=== PATIENT | male | born 1965 | race Caucasian/White ===

== ENCOUNTER 2021-02-10 10:44 | Day surgery (SDC) | payer OTHER, BC ==
--- NOTE | 2021-02-10 11:12 | EDM.PDOC ---
ED HPI GENERAL MEDICAL PROBLEM - General Chief Complaint: Lower Extremity Injury/Pain Stated Complaint: FALL VIA NORTH Time Seen by Provider: 02/10/21 10:55 Source of Information: Reports: Patient, RN Notes Reviewed History Limitations: Reports: No Limitations - History of Present Illness INITIAL COMMENTS - FREE TEXT/NARRATIVE: 55-year-old gentleman was at work when he slipped on some snow and ice he had a twist heard a large pop in his left knee now he has difficulty ambulating. Was brought in by EMS services did receive 100 mcg of fentanyl his pain is controlled at this time excruciating pain moving the knee at all - Related Data Allergies Allergy/AdvReac Type Severity Reaction Status Date / Time No Known Allergies Allergy Verified 02/10/21 10:48 Home Meds: Home Meds NK [No Known Home Meds] 02/10/21 [History] Past Medical History - Past Health History Medical/Surgical History: Denies Medical/Surgical History Social & Family History - Tobacco Use Tobacco Use Status *Q: Heavy Tobacco User Years of Tobacco use: 45 Packs/Tins Daily: 1 - Recreational Drug Use Recreational Drug Use: No Review of Systems - Review of Systems Review Of Systems: See Below Musculoskeletal: Reports: Joint Pain (Knee pain) ED EXAM, GENERAL - Physical Exam Exam: See Below Free Text/Narrative:: Examination of the left knee I do appreciate a sunken area above the patella he does complain of pain to palpation in this area I cannot appreciate the tendon on the superior aspect no joint line tenderness will not tolerate any movement Course - Vital Signs Last Recorded V/S: Last Vital Signs Temp 97.8 F 02/10/21 10:46 Pulse 83 02/10/21 10:46 Resp 18 02/10/21 10:46 BP 136/65 02/10/21 10:46 Pulse Ox 99 02/10/21 10:46 - Orders/Labs/Meds Orders: Active Orders 24 hr Category Date Time Status CBC WITH AUTO DIFF [HEME] Stat Lab 02/10/21 12:13 Ordered COMPREHENSIVE METABOLIC PN,CMP [CHEM] Stat Lab 02/10/21 12:13 Ordered CORONAVIRUS COVID-19 RAPID [MOLEC] Stat Lab 02/10/21 12:18 Ordered DRUG SCREEN, URINE [URCHEM] Stat Lab 02/10/21 12:08 Ordered Meds: Medications Discontinued Medications Generic Name Dose Route Start Last Admin Trade Name Freq PRN Reason Stop Dose Admin Dexamethasone Confirm 02/10/21 12:19 Dexamethasone 4 Mg/Ml Sdv Administered 02/10/21 12:20 Dose 4 mg .ROUTE .STK-MED ONE Fentanyl Confirm 02/10/21 12:18 Fentanyl 250 Mcg/5 Ml Sdv Administered 02/10/21 12:19 Dose 250 mcg .ROUTE .STK-MED ONE Glycopyrrolate Confirm 02/10/21 12:19 Glycopyrrolate 0.2 Mg/Ml 5 Ml Mdv Administered 02/10/21 12:20 Dose 1 mg .ROUTE .STK-MED ONE Neostigmine Methylsulfate Confirm 02/10/21 12:19 Neostigmine Methylsulfate 1 Mg/Ml 5 Ml Syringe Administered 02/10/21 12:20 Dose 5 mg .ROUTE .STK-MED ONE Ondansetron HCl Confirm 02/10/21 12:19 Ondansetron 4 Mg/2 Ml Sdv Administered 02/10/21 12:20 Dose 4 mg .ROUTE .STK-MED ONE Propofol Confirm 02/10/21 12:19 Propofol 200 Mg/20 Ml Sdv Administered 02/10/21 12:20 Dose 200 mg .ROUTE .STK-MED ONE Rocuronium [place] Confirm 02/10/21 12:19 Rocuronium 50 Mg/5 Ml Vial Administered 02/10/21 12:20 Dose 50 mg .ROUTE .STK-MED ONE Succinylcholine Chloride Confirm 02/10/21 12:19 Succinylcholine 200 Mg/10 Ml Mdv Administered 02/10/21 12:20 Dose 200 mg .ROUTE .STK-MED ONE Departure - Departure Time of Disposition: 12:26 Disposition: DC/Tfer to Other 70 Clinical Impression: Patellar tendon rupture Qualifiers: Encounter type: initial encounter Laterality: left Qualified Code(s): S86.812A - Strain of other muscle(s) and tendon(s) at lower leg level, left leg, initial encounter - Discharge Information Referrals: PCP,None [Primary Care Provider] - Forms: ED Department Discharge Sepsis Event Note (ED) - Evaluation Sepsis Screening Result: No Definite Risk - Focused Exam Vital Signs: Vital Signs Temp Pulse Resp BP Pulse Ox 02/10/21 10:46 97.8 F 83 18 136/65 99 - My Orders Last 24 Hours: My Active Orders 02/10/21 12:08 DRUG SCREEN, URINE [URCHEM] Stat 02/10/21 12:13 CBC WITH AUTO DIFF [HEME] Stat COMPREHENSIVE METABOLIC PN,CMP [CHEM] Stat 02/10/21 12:18 CORONAVIRUS COVID-19 RAPID [MOLEC] Stat - Assessment/Plan Last 24 Hours: My Active Orders 02/10/21 12:08 DRUG SCREEN, URINE [URCHEM] Stat 02/10/21 12:13 CBC WITH AUTO DIFF [HEME] Stat COMPREHENSIVE METABOLIC PN,CMP [CHEM] Stat 02/10/21 12:18 CORONAVIRUS COVID-19 RAPID [MOLEC] Stat Plan: assessment patella tendon tear plan consult ortho at 12:10
--- NOTE | 2021-02-10 11:58 | CRLCR ---
For Patients: As a result of the Century Cures Act, medical imaging exams and procedure reports are released immediately into your electronic medical record. You may view this report before your referring provider. If you have questions, please contact your health care provider. Indication: Fall. Pain. Technique: Three images of the left knee were acquired Comparison: None Findings: The medial and lateral compartments appear normal. There is no fracture identified involving the femur, tibia or proximal fibula. A small joint effusion is noted. There is a relatively large spur arising from the superior aspect of the patella. 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 There are multiple ossific bodies identified which probably represent intra-articular bodies. This usually related to remote trauma, likely of the patella Impression: Significant appearing chronic changes of the patella. No definite indication of acute fracture, dislocation or destructive process. Small joint effusion. Dictated by Cordell Montgomery MD @ 02/10/2021 11:58:00 AM (Electronically Signed)
[2021-02-10] MEDS ORDERED: fentaNYL 250 MCG/5 ML SDV ONE ×2 (12:18→14:12)
[2021-02-10] MEDS ORDERED: Succinylcholine 200 MG/10 ML MDV ONE (12:19)
[2021-02-10] MEDS ORDERED: Neostigmine Methylsulfate 1 MG/ML 5 ML Syringe ONE (12:19)
[2021-02-10] MEDS ORDERED: Ondansetron 4 MG/2 ML SDV ONE (12:19)
[2021-02-10] MEDS ORDERED: Propofol 200 MG/20 ML SDV ONE (12:19)
[2021-02-10] MEDS ORDERED: Rocuronium 50 MG/5 ML Vial ONE (12:19)
[2021-02-10] MEDS ORDERED: Dexamethasone 4 MG/ML SDV ONE (12:19)
[2021-02-10] MEDS ORDERED: Glycopyrrolate 0.2 MG/ML 5 ML MDV ONE (12:19)
[2021-02-10] MEDS ORDERED: Bupivacaine 0.5%/EPINEPHrine 1:200,000 50 ML MDV ONE (12:36)
[2021-02-10] MEDS ORDERED: Bupivacaine 0.5% 30 ML SDV ONE (12:36)
[2021-02-10 13:20] LABS: CORONAVIRUS COVID-19 NAA NEGATIVE (NEGATIVE)
[2021-02-10] MEDS ORDERED: Albuterol/Ipratropium 3.0-0.5 MG/3 ML Neb Soln ONE (14:52)
[2021-02-10] MEDS ORDERED: Albuterol/Ipratropium 3.0-0.5 MG/3 ML Neb Soln NEB ONE (14:53)
[2021-02-10] MEDS ORDERED: Acetaminophen/oxyCODONE 325-5 MG Tab PO ONE (16:00)
--- NOTE | 2021-02-17 20:10 | OR ---
DATE OF PROCEDURE: 02/10/2021 SURGEON: Nirmal Richardson MD PREOPERATIVE DIAGNOSIS: Rupture of quadriceps tendon, left knee. POSTOPERATIVE DIAGNOSIS: Rupture of quadriceps tendon, left knee. PROCEDURE: Primary repair, quadriceps tendon, left knee. OVERLOCK WAISTLINE JOINER: TENNILLE Rae ANESTHESIA: General. INDICATIONS: Hilton is a 55-year-old gentleman, who sustained a fall at work resulting in complete rupture of the quadriceps tendon. He presented to the emergency room with obvious defect in the tendon. He was taken to the operating room for primary repair. X-ray shows some calcification proximal to the superior pole of the patella consistent with fragmentation in the quadriceps tendon. Risks, benefits, and potential complications of the procedure were discussed with the patient. PROCEDURE: After adequate anesthesia was obtained, the left leg was prepped and draped in a sterile fashion. Prior to prep, tourniquet was placed about the left upper thigh. Leg was exsanguinated and tourniquet inflated to 250 mmHg pressure. A longitudinal incision was made anteriorly, carried down through the subcutaneous tissue and a hematoma was encountered at the rupture site. Complete rupture of the quadriceps tendon is noted. Calcifications noted primarily laterally in the tendon with defect in the superolateral patella consistent with a bipartite patella. Hematoma was evacuated and wound irrigated. The edges of the tendon were trimmed. Rongeur was used to decorticate the superior pole of the patella. Three FiberWire sutures were then placed into the quadriceps tendon utilizing a Krackow stitch. Drill holes were placed longitudinally in the patella and sutures were passed from superior to distal through several tunnels. With the leg fully extended, the tendon was pulled snug against the superior pole of the patella and sutures were tied over the inferior aspect of the patella. Additional fixation was obtained with a #2 Ethibond, which was used to close the capsule starting medially and running across the repair and ending in the lateral capsule. Once repair was completed, the knee was flexed easily to 90 degrees with no separation or loss of fixation. Skin was closed with 2-0 Vicryl and a running 3-0 Monocryl. Steri-Strips were applied. The wound edges and the tendon were infiltrated with 0.5% Marcaine. Steri-Strips and a sterile dressing were applied. Light compressive dressing was placed and the leg was placed into a hinged knee brace locked in extension. The patient tolerated the procedure very well. There were no complications. Taken from the operating room in stable condition. Nirmal Richardson MD /[id number] MTDD
== END 2021-02-10 17:00 | disposition home or self-care (01) ==
LOC: JP.ED 10:44 → JP.SDS 12:17
PROVIDERS: ATTEND Specialist
DX: S76.112A Strain of left quadriceps muscle, fascia and tendon, initial encounter (principal); F17.210 Nicotine dependence, cigarettes, uncomplicated; E66.9 Obesity, unspecified; Z01.812 Encounter for preprocedural laboratory examination; Z20.822 Contact with and (suspected) exposure to COVID-19; W00.0XXA Fall on same level due to ice and snow, initial encounter; Z68.31 Body mass index [BMI] 31.0-31.9, adult
CPT/HCPCS: 0241U; 27385; 36415; 73562; 80053; 80305; 85025; 87635; 99284; A9270; J0330; J1100; J2405; J2704; J2710; J3010; J3490; U0002